=== PATIENT | female | born 1980 | race Caucasian/White ===

== ENCOUNTER 2021-04-28 08:23 | Emergency (ER) | payer OTHER ==
[~2021-04-28] VITALS: Ht 154.9 cm; Wt 54.5 kg
--- NOTE | 2021-04-28 08:38 | PHYS DOC ---
General Adult EDM: Chief Complaint: ALLERGIC REACTION HPI: HPI: Patient is a 40 year old female who presented to ER due to itchy and nausea since earlier today. Patient feels like she got some form of allergic reaction to something. She denies taking any new medication or using any new perfume. Patient said she had this problem before. Patient feels like her throat was swelling up. Patient denies any chest pain, no trouble breathing. Denies any cough or fever Review of Systems: Review of Systems: Constitutional: Denies fever or chills. [] Eyes: Denies change in visual acuity. [] HENT: Denies nasal congestion or sore throat. Positive for sensation of swelling in the throat Respiratory: Denies cough or shortness of breath. [] Cardiovascular: Denies chest pain or edema. [] GI: Denies abdominal pain, nausea, vomiting, bloody stools or diarrhea. [] : Denies dysuria. [] Musculoskeletal: Denies back pain or joint pain. [] Integument: Positive for rash and itchy Neurologic: Denies headache, focal weakness or sensory changes. [] Endocrine: Denies polyuria or polydipsia. [] Lymphatic: Denies swollen glands. [] Psychiatric: Denies depression or anxiety. [] Heart Score: C/O Chest Pain: N/A Risk Factors: Risk Factors: DM, Current or recent (<one month) smoker, HTN, HLP, family history of CAD, obesity. Risk Scores: Score 0 - 3: 2.5% MACE over next 6 weeks - Discharge Home Score 4 - 6: 20.3% MACE over next 6 weeks - Admit for Clinical Observation Score 7 - 10: 72.7% MACE over next 6 weeks - Early Invasive Strategies Physical Exam: PE: Constitutional: Well developed, well nourished, no acute distress, non-toxic appearance. [] HENT: Normocephalic, atraumatic, bilateral external ears normal, oropharynx moist, no oral exudates, nose normal. No angioedema. No leg swelling no tongue swelling, no throat swelling. Eyes: PERRLA, EOMI, conjunctiva normal, no discharge. [] Neck: Normal range of motion, no tenderness, supple, no stridor. [] Cardiovascular:Heart rate regular rhythm, no murmur [] Lungs & Thorax: Bilateral breath sounds clear to auscultation [] Abdomen: Bowel sounds normal, soft, no tenderness, no masses, no pulsatile masses. [] Skin: Warm, dry, diffuse rash over extremities and trunK. Back: No tenderness, no CVA tenderness. [] Extremities: No tenderness, no cyanosis, no clubbing, ROM intact, no edema. [] Neurologic: Alert and oriented X 3, normal motor function, normal sensory function, no focal deficits noted. [] Psychologic: Affect normal, judgement normal, mood normal. [] EKG: EKG: [] Radiology/Procedures: Radiology/Procedures: [] Course & Med Decision Making: Course & Med Decision Making Pertinent Labs and Imaging studies reviewed. (See chart for details) Patient is a 40-year-old female who presented to ER due to allergic reaction. Patient was given medication in the ER, she feel much better. Patient will be discharged home with EpiPen, she was instructed to follow-up with her primary care physician for established Peri care provider relationship, patient was also given the number of the allergy clinic so she can call for outpatient testing. Patient is amenable to plan of care. Dragon Disclaimer: Dragon Disclaimer: This electronic medical record was generated, in whole or in part, using a voice recognition dictation system. Departure Departure Impression: Primary Impression: Urticaria Additional Impression: Allergy Disposition: 01 HOME / SELF CARE / HOMELESS Condition: IMPROVED Patient Instructions: Allergies, Generic, Hives Additional Instructions: Please call the ALLERGY CLINIC BELOW THIS WEEK FOR OUTPATIENT FOLLOW UP. [facility]: [facility] [id number] [place] [address] Fax Please follow up with [facility] this week to establish Primary Care Provider. [address], [address] [place] [address] Phone number: [phone] Scripts Prednisone (PREDNISONE) 20 Mg Tablet 1 TAB PO DAILY for 7 Days, #7 TAB Prov: TORRIE GONZALES DO 04/28/21 Famotidine (PEPCID) 20 Mg Tablet 20 MG PO HS for 7 Days, #7 TAB Prov: OTRRIE GONZALES DO 321 Epinephrine (EPIPEN 2-MONO) 0.3 Mg/0.3 Ml Auto.injct 1 SYR IM ONCE for 1 Day, #1 PACKET 0 Refills Prov: TORRIE GONZALES DO 04/28/21 TORRIE GONZALES DO Apr 28, 2021 08:38
[2021-04-28] MEDS ORDERED: ONDANSETRON PF 4 MG/2 ML VIAL. IVP ONE (08:45)
[2021-04-28] MEDS ORDERED: FAMOTIDINE 20 MG/2 ML VIAL IVP ONE (08:45)
[2021-04-28] MEDS ORDERED: EPINEPHrine 1 MG/ML VIAL IM ONE (08:45)
[2021-04-28] MEDS ORDERED: diphenhydrAMINE 50 MG/ML VIAL IVP ONE (08:45)
[2021-04-28] MEDS ORDERED: methylPREDNISolone SOD SUCC PF 125 MG/2 ML VIAL. IV ONE (08:45)
[2021-04-28] MEDS ORDERED: IV NORMAL SALINE 1000ML BAG 1,000 ML IV ONE (08:45)
[2021-04-28 10:54] VITALS: BP 127/65
[2021-04-28] MEDS ORDERED: PRED20TA PO (11:12)
[2021-04-28] MEDS ORDERED: FAMO-63 PO (11:12)
[2021-04-28] MEDS ORDERED: EPIPEN 2-P0.3 MG/0.3 IM (11:12)
== END 2021-04-28 11:30 | disposition home or self-care (01) ==
LOC: ER 08:23
DX: L50.0 Allergic urticaria (principal)
CPT/HCPCS: 96361; 96372; 96374; 96375; 99284; J0171; J1200; J2405; J2930; J3490; J7030